=== PATIENT | female | born 1995 | race Caucasian/White ===

== ENCOUNTER 2016-10-05 14:54 | Emergency (ER) | payer OTHER ==
--- NOTE | ~2016-10-05 | CT4 ---
[facility] A Service of [facility] RADIOLOGY TEXT RESULTS PATIENT: TOYIN CHÁVEZ LOCATION: SED : [birth year] UNIT #: [id number] AGE: [address]: Claude Rivero MD SEX: F ORDER DR: [id number] [place] [id number] E MR#: [id number] #: [id number] NAME: TOYIN CHÁVEZ. : 1995 SEX: F STUDY DATE/TIME: 10/05/2016 16:25 UNIT: SED ROOM: STUDY DESCRIPTION: CT Abd and Pelv Wo Cont Attending Physician: Claude Rivero M.D. Ordering Physician: Claude Rivero M.D. Primary Care Physician: Winnie Jessica A.P.R.N. MEDICAL IMAGING REPORT This report is preliminary unless electronic signature is present. EXAM Abdomen and pelvis CT no contrast, 10/05/2016 INDICATION 21-year-old female with right-sided pain in the upper mid abdomen. Onset of symptoms this morning. TECHNIQUE Noncontrast abdomen and pelvis CT was performed compared with 12/24/2012. This CT exam was performed with one or more of the following radiation dose reduction techniques: automatic exposure control, adjustment of mA and/or kV according to patient size, and iterative reconstruction. FINDINGS CT ABDOMEN: Exam markedly degraded by noncontrast technique. Included lung bases clear. Spleen, adrenal glands, pancreas, gallbladder, and liver unremarkable. Kidneys unremarkable. Ureters not well visualized or assessed due to lack of fat surrounding them. CT PELVIS: Bladder unremarkable. There is no drainable fluid collection in the pelvis or adnexal mass. No free air. The appendix is normal. Inguinal canal is normal. No suspicious bone lesion. IMPRESSION No clearly acute process identified. No hydronephrosis or obstructing stone. Appendix normal. Dictated by... Jaime Vu M.D. [facility] A Service of [facility] RADIOLOGY TEXT RESULTS PATIENT: TOYIN CHÁVEZ LOCATION: SED : 94 UNIT #: [id number] AGE: [address]: Claude Rivero MD SEX: F ORDER DR: THIS IS AN ELECTRONICALLY VERIFIED REPORT Jaime Vu M.D. at 10/06/2016 11:42 AM Jovanni TD: 10/06/2016 00:36 JOB #: [id number] MEDICAL IMAGING REPORT Page 1 of 1
[~2016-10-05 14:54] MED LIST: ANAPROX DS550 M1 PO; CLARITIN10 M3 PO; IBUPROFEN800 MG PO; REMERON15 MG PO
[2016-10-05] MEDS ORDERED: BIRTH CONTROL (15:01)
[2016-10-05 15:49] LABS: BASOPHIL# 0.1 X10e3 (0-0.3); BASOPHIL% 1.2 % (0-2.5); EOSINOPHIL# 0.1 X10e3 (0-0.7); EOSINOPHIL% 1.4 % (0.0-7.0); HEMATOCRIT 42.2 % (35.0-45.0); HEMOGLOBIN 14.6 gm/dL (12.0-16.0); LYMPHOCYTE# 2.6 X10e3 (1.0-3.5); LYMPHOCYTE% 37.4 % (17.0-45.0); MEAN CELL VOLUME 86.4 FL (83-96); MEAN CORPUSCULAR HGB CONC 34.7 g/dL (30-36); MEAN PLATELET VOLUME 7.8 FL (6.5-11.5); MONOCYTE# 0.4 X10e3 (0-1.0); MONOCYTE% 6.3 % (3.0-12.0); NEUTROPHIL# 3.7 X10e3 (1.5-7.1); NEUTROPHIL% 53.7 % (40-75); PLATELET COUNT 238 X10e3 (140-420); RED BLOOD COUNT 4.88 X10e (3.90-5.30); RED CELL DISTRIBUTION WIDTH 13.2 % (11.0-15.5); WHITE BLOOD COUNT 6.9 X10e3 (4.0-10.5)
[2016-10-05 15:53] LABS: DIFF IND NO
[2016-10-05 16:10] LABS: ALBUMIN SERUM 4.3 g/dL (3.5-5.0); BILIRUBIN, DIRECT 0.1 mg/dL (0.0-0.2); BILIRUBIN,INDIRECT 0.8 mg/dL (0.0-0.9); BILIRUBIN,TOTAL 0.9 mg/dL (0.2-2.0); BUN/CREATININE RATIO 15.71; CALCIUM SERUM 9.1 mg/dL (8.4-10.2); CREATININE SERUM 0.7 mg/dL (0.6-1.4); POTASSIUM 3.5 mmol/L (3.5-5.1)
[2016-10-05 18:05] LABS: URINE SOURCE CLEAN CATCH
[2016-10-05 18:07] LABS: URINE APPEARANCE CLEAR; URINE BILIRUBIN NEG (NEG); URINE BLOOD 2+ (NEG); URINE COLOR YELLOW; URINE GLUCOSE NEG (NORM); URINE KETONE NEG (NEG); URINE LEUKOCYTE ESTERASE NEG (NEG); URINE NITRATE NEG (NEG); URINE PH 5.5 (5-8); URINE PROTEIN NEG (NEG); URINE SPECIFIC GRAVITY 1.025 (1.003-1.035); URINE UROBILINOGEN 0.2 MG/DL (NORM)
[2016-10-05 18:10] LABS: MICRO INDICATED? YES
[2016-10-05 18:33] LABS: CULTURE INDICATED? NO; URINE BACTERIA NEG (NEG)
[2016-10-05 18:34] LABS: URINE MUCUS PRESENT; URINE SQUAMOUS EPITHELIAL CELL OCCAS /[HPF]
[2016-10-05] MEDS ORDERED: BACTRIM DS TAB1 EACH PO (18:41)
[2016-10-05] MEDS ORDERED: PRILOSEC PO (18:42)
[2016-10-05] MEDS ORDERED: ZOFRAN ODT4 MG PO (18:42)
== END 2016-10-05 18:54 | disposition home or self-care (01) ==
LOC: SED 14:54
PROVIDERS: Emergency Medicine
DX: N39.0 Urinary tract infection, site not specified (principal); Z87.891 Personal history of nicotine dependence; Z79.899 Other long term (current) drug therapy; Z98.890 Other specified postprocedural states
CPT/HCPCS: 36415; 74176; 80048; 80076; 81003; 82150; 83690; 84703; 85025; 96374; 96375; 99284; C9113; J1885; J2405